=== PATIENT | male | born 1940 | race Caucasian/White ===

== ENCOUNTER 2021-08-07 09:56 | Outpatient (RCR) | payer MEDICARE ==
[~2021-08-07 09:56] MED LIST: HEMOCYTE PLUS1 EACH PO; LEVOTHYROXINE150 MCG PO; LOVENOX40 MG/0.4 SQ; NORCO 7.5-3251 EACH PO; SIMVASTATIN20 MG PO; TRIAMTERENE-HC1 EAC2 PO
== END 2021-08-08 ==
LOC: PT 09:56
PROVIDERS: ATTEND Specialist
DX: M17.11 Unilateral primary osteoarthritis, right knee (principal)

== ENCOUNTER 2021-08-16 07:58 | Outpatient (RCR) | payer MEDICARE | END 2021-09-08 | LOC: PT 07:58 | PROVIDERS: ATTEND Specialist | DX: M17.11 Unilateral primary osteoarthritis, right knee (principal) | CPT/HCPCS: 97139 ==

== ENCOUNTER 2024-12-04 17:22 | Emergency (ER) | payer MEDICARE ==
[~2024-12-04] VITALS: Ht 180.3 cm; Wt 95.3 kg
[2024-12-04 19:03] VITALS: PULSE 80; RESP 16; TEMP 98.3
[2024-12-04 19:11] VITALS: BP 139/87; PULSE 80; RESP 16; TEMP 98.3; O2SAT 99
== END 2024-12-04 18:53 | disposition home or self-care (01) ==
LOC: ER 17:43
DX: T83.090A Other mechanical complication of cystostomy catheter, initial encounter (principal)
CPT/HCPCS: 99282